=== PATIENT | female | born 1945 | race Caucasian/White ===

== ENCOUNTER → 2017-08-17 | Outpatient (CLI) | payer MEDICARE | END | disposition home or self-care (01) | LOC: RAH 12:32 | PROVIDERS: ATTEND Physical Medicine & Rehabilitation | DX: M47.896 Other spondylosis, lumbar region (principal); M41.84 Other forms of scoliosis, thoracic region; M48.061 Spinal stenosis, lumbar region without neurogenic claudication | CPT/HCPCS: 72081; 72100 ==

== ENCOUNTER 2017-10-23 10:42 | Emergency (ER) | payer MEDICARE ==
[2017-10-23 11:47] LABS: BASOPHILS % (AUTO) 0.7 % (0.0-5.0); EOSINOPHILS % (AUTO) 1.9 % (0.0-8.0); HEMATOCRIT 34.8 % (36-48); LYMPHOCYTES % (AUTO) 39.1 % (21.0-51.0); MEAN CORPUSCULAR HEMOGLOBIN 32.4 pg (27.0-33.0); MEAN CORPUSCULAR HGB CONC 35.7 g/dL (32.0-36.0); MEAN CORPUSCULAR VOLUME 90.8 fL (79-99); MONOCYTES % (AUTO) 8.8 % (3.0-13.0); NEUTROPHILS % (AUTO) 49.5 % (40.0-77.0); NUCLEATED RED BLOOD CELLS 0.1 % (0.0-0.19); PLATELET COUNT (AUTO) 287 K/uL (130-400); RED BLOOD CELL COUNT(AUTO) 3.83 MIL/uL (4.00-5.50); RED CELL DISTRIBUTION WIDTH 13.1 % (11.0-15.5); WHITE BLOOD COUNT (AUTO) 6.4 K/uL (4.8-10.8)
[2017-10-23 12:04] LABS: CREATININE 0.9 mg/dL (0.5-1.5)
[2017-10-23 12:23] LABS: POTASSIUM 2.6 mmol/L (3.5-5.1)
[2017-10-23] MEDS ORDERED: POTASSIUM BICARB/CIT AC 25 MEQ TABLET.EFF ONE (12:29)
[2017-10-23] MEDS ORDERED: MAGNESIUM OXIDE 400 MG TABLET PO ONE (12:29)
== END 2017-10-23 12:51 | disposition home or self-care (01) ==
LOC: EDH 10:42
DX: E87.6 Hypokalemia (principal); I10 Essential (primary) hypertension
CPT/HCPCS: 36415; 80048; 80061; 83735; 85025; 93005

== ENCOUNTER 2018-02-19 20:59 | Emergency (ER) | payer MEDICARE ==
[2018-02-19 21:49] LABS: APPEARANCE,URINE Clear (CLEAR); BILIRUBIN,URINE Negative (NEGATIVE); COLOR,URINE Yellow (YELLOW); GLUCOSE, URINE (UA) Negative (NEGATIVE); KETONES,URINE Trace mg/dL (NEGATIVE); LEUKOCYTE ESTERASE ,URINE Trace (NEGATIVE); NITRATE,URINE Negative (NEGATIVE); OCCULT BLOOD,URINE Trace (NEGATIVE); PH,URINE 6.5 (5.0-8.0); PROTEIN,URINE Negative (NEGATIVE)
[2018-02-19 21:57] LABS: BASOPHILS % (AUTO) 0.7 % (0.0-5.0); EOSINOPHILS % (AUTO) 0.9 % (0.0-8.0); HEMATOCRIT 38.3 % (36-48); LYMPHOCYTES % (AUTO) 34.3 % (21.0-51.0); MEAN CORPUSCULAR HEMOGLOBIN 31.3 pg (27.0-33.0); MEAN CORPUSCULAR HGB CONC 34.7 g/dL (32.0-36.0); MEAN CORPUSCULAR VOLUME 90.3 fL (79-99); MONOCYTES % (AUTO) 8.9 % (3.0-13.0); NEUTROPHILS % (AUTO) 55.2 % (40.0-77.0); PLATELET COUNT (AUTO) 301 K/uL (130-400); RED BLOOD CELL COUNT(AUTO) 4.24 MIL/uL (4.00-5.50); RED CELL DISTRIBUTION WIDTH 13.4 % (11.0-15.5)
[2018-02-19 21:59] LABS: BACTERIA,URINE Rare /HPF (None Seen); SQUAMOUS EPITHELIAL CELL,UR Rare /HPF (0-2); WBC,URINE 0-1 /HPF (0-1)
[2018-02-19 22:19] LABS: ALBUMIN 4.3 g/dL (3.5-5.0); BILIRUBIN,TOTAL 0.5 mg/dL (0.2-1.0); TOTAL PROTEIN, SERUM 8.1 g/dL (6.0-8.3)
[2018-02-19 22:20] LABS: POTASSIUM 2.7 mmol/L (3.5-5.1)
[2018-02-19] MEDS ORDERED: ONDANSETRON HCL 4 MG/2 ML VIAL ONE (23:21)
[2018-02-19] MEDS ORDERED: POTASSIUM BICARB/CIT AC 25 MEQ TABLET.EFF ONE (23:21)
== END 2018-02-20 00:08 | disposition home or self-care (01) ==
LOC: EDH 20:59
DX: E87.6 Hypokalemia (principal); R53.1 Weakness; R11.0 Nausea; I10 Essential (primary) hypertension; Z90.710 Acquired absence of both cervix and uterus
CPT/HCPCS: 36415; 80053; 81001; 82550; 84484; 85025; 93005; 96374; 99285; J2405

== ENCOUNTER 2018-03-22 06:52 | Observation (INO) | payer MEDICARE ==
[~2018-03-22] VITALS: Ht 157.5 cm; Wt 61.9 kg
[2018-03-22 07:09] LABS: BASOPHILS % (AUTO) 0.5 % (0.0-5.0); EOSINOPHILS % (AUTO) 2.9 % (0.0-8.0); HEMATOCRIT 35.5 % (36-48); LYMPHOCYTES % (AUTO) 46.6 % (21.0-51.0); MEAN CORPUSCULAR HEMOGLOBIN 31.2 pg (27.0-33.0); MEAN CORPUSCULAR HGB CONC 33.8 g/dL (32.0-36.0); MEAN CORPUSCULAR VOLUME 92.3 fL (79-99); PLATELET COUNT (AUTO) 269 K/uL (130-400); RED BLOOD CELL COUNT(AUTO) 3.85 MIL/uL (4.00-5.50); RED CELL DISTRIBUTION WIDTH 13.8 % (11.0-15.5); WHITE BLOOD COUNT (AUTO) 6.3 K/uL (4.8-10.8)
[2018-03-22 07:27] LABS: CREATININE 0.9 mg/dL (0.5-1.5); POTASSIUM 3.6 mmol/L (3.5-5.1)
[2018-03-22 07:34] LABS: ALBUMIN 4.3 g/dL (3.5-5.0); BILIRUBIN,TOTAL 0.6 mg/dL (0.2-1.0); TOTAL PROTEIN, SERUM 7.8 g/dL (6.0-8.3)
[2018-03-22] MEDS ORDERED: ASPIRIN 325 MG TABLET ONE (07:43)
[2018-03-22] MEDS ORDERED: NITROGLYCERIN 0.4 MG SL TAB SL ONE (07:46)
[2018-03-22 08:39] LABS: INR 1.02 (0.85-1.15); PARTIAL THROMBOPLASTIN TIME 30.5 SEC (26.3-35.5); PROTHROMBIN TIME 10.7 SEC (9.6-11.6)
[2018-03-22] MEDS ORDERED: NITROGLYCERIN 1GM/1 INCH PACKET TD ONE (09:33)
[2018-03-22 12:00] VITALS: BP 138/69
[2018-03-22] MEDS ORDERED: LIDOCAINE HCL-MPF 1% 2ML VIAL IJ PRN (12:30)
[2018-03-22] MEDS ORDERED: POTASSIUM CHLORIDE 20 MEQ ERTAB PO PRN (12:30)
[2018-03-22] MEDS ORDERED: POTASSIUM CHLORIDE 10% ELIXIR 20 MEQ/15 ML UDCUP PO PRN (12:30)
[2018-03-22] MEDS ORDERED: POTASSIUM CHLORIDE 20MEQ/100ML 100 ML IV PRN (12:30)
[2018-03-22] MEDS: NITROGLYCERIN 1GM/1 INCH PACKET TD SCH ×2 (12:52→18:46)
[2018-03-22] MEDS: SODIUM CHLORIDE 0.9% 1000ML 1,000 ML IV SCH (12:52)
[2018-03-22 16:00] VITALS: BP 130/66
[2018-03-22] MEDS ORDERED: AMLO5TAB7 PO (16:05)
[2018-03-22 18:54] LABS: CREATINE KINASE, TOTAL 29 U/L (21-232); MYOGLOBIN 26 ng/mL (10-92); TROPONIN I < 0.04 ng/mL (0.00-0.06)
[2018-03-22 19:13] VITALS: BP 111/67
[2018-03-23] MEDS: NITROGLYCERIN 1GM/1 INCH PACKET TD SCH ×4 (00:03→18:30)
[2018-03-23 00:07] VITALS: BP 130/64
[2018-03-23 05:15] VITALS: BP 125/68
[2018-03-23 06:08] LABS: CARBON DIOXIDE 28 mmol/L (21-32); CHLORIDE 106 mmol/L (101-111); CHOLESTEROL 180 mg/dL (<200); CREATINE KINASE, TOTAL 25 U/L (21-232); GLOMERULAR FILTR. RATE CALC 58 mL/min (>60); GLUCOSE,RANDOM 106 mg/dL (70-105); HDL CHOLESTEROL 60 mg/dL (35-85); LDL DIRECT 105 mg/dL (0-99); MYOGLOBIN 38 ng/mL (10-92); POTASSIUM 3.9 mmol/L (3.5-5.1); SODIUM SERUM 141 mmol/L (136-145); TRIGLYCERIDES 76 mg/dL (30-200); TROPONIN I < 0.04 ng/mL (0.00-0.06); UREA NITROGEN, BLOOD 16 mg/dL (7-18)
[2018-03-23 08:06] VITALS: BP 130/69
[2018-03-23] MEDS: ASPIRIN 325 MG TABLET PO SCH (08:52)
[2018-03-23] MEDS: POTASSIUM CHLORIDE 20 MEQ ERTAB PO SCH (08:52)
[2018-03-23] MEDS: AMLODIPINE BESYLATE 5 MG TAB PO SCH (08:52)
[2018-03-23] MEDS ORDERED: REGADENOSON 0.4 MG/5 ML PF SYG IVP SCH (12:00)
[2018-03-23 12:01] VITALS: BP 111/43
[2018-03-23] MEDS: SODIUM CHLORIDE 0.9% 1000ML 1,000 ML IV SCH (12:30)
[2018-03-23 16:00] VITALS: BP 132/78
[2018-03-23 19:57] VITALS: BP 125/70
[2018-03-23] MEDS ORDERED: ATORVASTATIN CALCIUM 20 MG TABLET PO SCH (21:00)
[2018-03-24] VITALS: BP 116/72
[2018-03-24] MEDS: NITROGLYCERIN 1GM/1 INCH PACKET TD SCH ×2 (00:30→06:19)
[2018-03-24 03:45] VITALS: BP 115/63
[2018-03-24 07:00] VITALS: BP 129/76
[2018-03-24] MEDS: AMLODIPINE BESYLATE 5 MG TAB PO SCH (08:09)
[2018-03-24] MEDS: ASPIRIN 325 MG TABLET PO SCH (08:09)
[2018-03-24] MEDS: POTASSIUM CHLORIDE 20 MEQ ERTAB PO SCH (08:09)
== END 2018-03-24 09:00 | disposition home or self-care (01) ==
LOC: EDH 06:52 → EDHIP 09:04 → 2AH 11:49
PROVIDERS: ADMIT Internal Medicine Hematology & Oncology; ATTEND Internal Medicine Hematology & Oncology
DX: I20.0 Unstable angina (principal); I10 Essential (primary) hypertension; E87.6 Hypokalemia; Z82.3 Family history of stroke; Z82.49 Family history of ischemic heart disease and other diseases of the circulatory system; Z90.710 Acquired absence of both cervix and uterus; Z79.01 Long term (current) use of anticoagulants
CPT/HCPCS: 36415 ×2; 71045; 78452; 80048; 80053; 80061; 82550 ×3; 83874 ×2; 83880; 84484 ×3; 85025; 85378; 85610; 85651; 85730; 93005 ×3; 93017; 93306; 96374; 99285; A9500 ×2; G0378 ×48; J2785; J7030

== ENCOUNTER 2018-07-04 05:53 | Day surgery (SDC) | payer MEDICARE ==
[2018-06-29 12:51] LABS: CREATININE 0.8 mg/dL (0.5-1.5); POTASSIUM 3.8 mmol/L (3.5-5.1)
[2018-06-29 12:53] LABS: BASOPHILS % (AUTO) 0.8 % (0.0-5.0); EOSINOPHILS % (AUTO) 1.9 % (0.0-8.0); HEMATOCRIT 37.6 % (36-48); LYMPHOCYTES % (AUTO) 33.2 % (21.0-51.0); MEAN CORPUSCULAR HEMOGLOBIN 31.1 pg (27.0-33.0); MEAN CORPUSCULAR HGB CONC 33.6 g/dL (32.0-36.0); MEAN CORPUSCULAR VOLUME 92.4 fL (79-99); MONOCYTES % (AUTO) 5.7 % (3.0-13.0); NEUTROPHILS % (AUTO) 58.4 % (40.0-77.0); NUCLEATED RED BLOOD CELLS 0.1 % (0.0-0.19); PLATELET COUNT (AUTO) 272 K/uL (130-400); RED BLOOD CELL COUNT(AUTO) 4.07 MIL/uL (4.00-5.50); RED CELL DISTRIBUTION WIDTH 13.4 % (11.0-15.5); WHITE BLOOD COUNT (AUTO) 7.1 K/uL (4.8-10.8)
[2018-06-29 13:01] VITALS: BP 133/61
[~2018-07-04] VITALS: Ht 157.5 cm; Wt 65.0 kg
[2018-07-04] VITALS (12 sets, daily range): BP systolic 107–149; BP diastolic 50–105
[2018-07-04] MEDS: CEFAZOLIN SODIUM 1 GM VIAL IVP SCH ×2 (05:00→07:31)
[~2018-07-04 05:53] MED LIST: AMLO5TAB9 PO
[2018-07-04] MEDS ORDERED: LACTATED RINGERS 1000ML 1,000 ML IV ONE (06:10)
[2018-07-04] MEDS ORDERED: LIDOCAINE PF 2% 5ML ABBOJECT ONE (06:56)
[2018-07-04] MEDS ORDERED: DEXAMETHASONE SOD PHOSPHATE 10MG/ML 1ML VIAL ONE (06:57)
[2018-07-04] MEDS ORDERED: MIDAZOLAM HCL 1 MG/ML 2ML VIAL ONE ×2 (06:57→07:34)
[2018-07-04] MEDS ORDERED: ONDANSETRON HCL 4 MG/2 ML VIAL ONE (06:57)
[2018-07-04] MEDS ORDERED: PROPOFOL 10 MG/ML 20ML VIAL IV ONE (06:57)
[2018-07-04] MEDS ORDERED: FENTANYL CITRATE PF 50 MCG/1 ML 2ML VIAL ONE (06:58)
[2018-07-04] MEDS ORDERED: LIDOCAINE HCL-MPF 0.5% 50ML VIAL IJ ONE (07:00)
[2018-07-04] MEDS ORDERED: LIDOCAINE HCL-MPF 1% 5ML AMP IJ ONE (08:10)
--- NOTE | 2018-07-04 08:35 | NUR ---
NEW PT RECEIVED PATIENT FROM PACU, S/P LEFT CARPAL TUNNEL RELEASE. DRESSING TO LEFT WRIST DRY AND INTACT, NEUROVASCULAR CHECK TO LEFT HAND WNL. PT AWAKE AND ALERT, VS STABLE ON ARRIVAL
--- NOTE | 2018-07-04 09:05 | NUR ---
DC DC INSTRUCTIONS GIVEN TO PT /SPOUSE WITH RX, INSTRUCTED TO F/U WITH DR. BALLARD, STAPLE REMOVAL KIT GIVEN TO PATIENT TO TAKE TO F/U APPOINTMENT. LEFT WRIST DRESSING DRY AND INTACT , NEUROVASCULAR CHECKS WNL. PT ABLE TO WIGGLE FINGERS. LEFT HAND WARM TO TOUCH, INSTRUCTED PATIENT / SPOUSE SHE CAN LOOSEN DRESSING IF NEEDED. PT GETTING DRESS WITH SPOUSE ASSISTANCE. WILL GO HOME WHEN READY. PIV REMOVED. CATHETER INTACT, SITE ASYMPTOMATIC .
--- NOTE | 2018-07-04 09:10 | NUR ---
DC PT DC HOME VIA W/C , NO DISTRESS NOTED. ACCOMPANIED BY SPOUSE.
== END 2018-07-04 09:10 | disposition home or self-care (01) ==
LOC: DAH 05:53
PROVIDERS: ATTEND Neurological Surgery
DX: G56.02 Carpal tunnel syndrome, left upper limb (principal); Z98.890 Other specified postprocedural states; Z79.899 Other long term (current) drug therapy; M19.90 Unspecified osteoarthritis, unspecified site
CPT/HCPCS: 36415; 64721; 80048; 85025; 93005; A4218; J0690; J1100; J2001; J2250 ×2; J2405; J2704; J3010; J3490 ×2; J7120

== ENCOUNTER → 2018-12-28 | Outpatient (CLI) | payer MEDICARE | END | disposition home or self-care (01) | LOC: RAH 08:32 | PROVIDERS: ATTEND Physical Medicine & Rehabilitation | DX: M47.816 Spondylosis without myelopathy or radiculopathy, lumbar region (principal); M48.07 Spinal stenosis, lumbosacral region; M85.88 Other specified disorders of bone density and structure, other site; M89.38 Hypertrophy of bone, other site | CPT/HCPCS: 72114 ==

== ENCOUNTER → 2019-02-28 | Outpatient (CLI) | payer MEDICARE | END | disposition home or self-care (01) | LOC: RAH 09:39 | PROVIDERS: ATTEND Physical Medicine & Rehabilitation | DX: M75.112 Incomplete rotator cuff tear or rupture of left shoulder, not specified as traumatic (principal) | CPT/HCPCS: 73030 ==

== ENCOUNTER → 2019-03-25 | Outpatient (CLI) | payer MEDICARE | END | disposition home or self-care (01) | LOC: RAH 12:54 | PROVIDERS: ATTEND Internal Medicine | DX: Z12.31 Encounter for screening mammogram for malignant neoplasm of breast (principal) | CPT/HCPCS: 77067 ==

== ENCOUNTER → 2019-11-26 | Outpatient (CLI) | payer MEDICARE | END | disposition home or self-care (01) | LOC: RAH 10:58 | PROVIDERS: ATTEND Nurse Practitioner Adult Health | DX: N60.82 Other benign mammary dysplasias of left breast (principal) | CPT/HCPCS: 76641; 77065 ==

== ENCOUNTER → 2022-05-04 | Outpatient (CLI) | payer MEDICARE ==
[~2022-05-04] MED LIST changes: +AMLO-257 PO; -AMLO5TAB9 PO
== END | disposition home or self-care (01) ==
LOC: RAH 10:58
PROVIDERS: ATTEND Family Medicine
DX: M79.641 Pain in right hand (principal)
CPT/HCPCS: 73130